=== PATIENT | female | born 1965 | race American Indian/Alaskan Native ===

== ENCOUNTER 2016-09-21 04:09 | Emergency (ER) | payer BC ==
[2016-09-21 05:03] LABS: Urine Drugs of Abuse Note Disclamer
[2016-09-21 05:23] LABS: Bilirubin,Urine NEG (Negative); Blood,Urine NEG (Negative); Ketones,Urine NEG (Negative); Leukocyte Esterase,Urine NEG (Negative); Nitrite,Urine NEG (Negative); Protein,Urine <15 mg/dL mg/dL (Negative); RBC,Urine < 1.0 /HPF (0.0-6.0); Urobilinogen,Urine < 2.0 mg/dL (<2.0); WBC,Urine < 1.0 /HPF (0.0-6.0)
[2016-09-21 05:35] LABS: Eosinophils % (Auto) 1.6 % (0.0-4.3); Hematocrit 43.6 % (30.3-42.9); Hemoglobin 14.4 gm/dl (10.1-14.3); Mean Corpuscular HGB Conc 33 % (30-34); Mean Corpuscular Hemoglobin 31 pg (28-32); Mean Corpuscular Volume 94 fl (79-97); Platelet Count 330 K/mm3 (140-440); Red Blood Count 4.66 M/mm3 (3.65-5.03); Red Cell Distribution Width 13.3 % (13.2-15.2); White Blood Count 7.2 K/mm3 (4.5-11.0)
[2016-09-21 05:53] LABS: Anion Gap 22 mmol/L; BUN/Creatinine Ratio 16.25; Blood Urea Nitrogen 13 mg/dL (7-17); Calcium 9.5 mg/dL (8.4-10.2); Carbon Dioxide 24 mmol/L (22-30); Chloride 104.3 mmol/L (98-107); Glucose 100 mg/dL (65-100); Potassium 5.4 mmol/L (3.6-5.0); Sodium 145 mmol/L (137-145)
[2016-09-21 06:29] LABS: Alanine Aminotransferase 24 units/L (7-56); Albumin 4.4 g/dL (3.9-5); Albumin/Globulin Ratio 1.3 %; Alkaline Phosphatase 72 units/L (35-129); Bilirubin,Total 0.2 mg/dL (0.1-1.2); Total Protein 7.7 g/dL (6.3-8.2)
[2016-09-21 06:33] LABS: Bilirubin,Direct < 0.2 mg/dL (0-0.2)
--- NOTE | 2016-09-21 06:38 | Emergency Department Report ---
History of Present Illness - General Chief Complaint: Overdose Stated Complaint: LAWRENCE EVAL Time Seen by Provider: 09/21/16 06:29 Source: patient, police Mode of arrival: Ambulatory Limitations: No Limitations - History of Present Illness Initial Comments: 51-year-old female presents emergency Department via law enforcement for evaluation. Reportedly the patient took 3 800 mg of ibuprofen and drank several glasses of wine in an attempt to get some sleep. Patient states that her mother several years ago, her nephew was killed over the weekend, and her cat had to be put to sleep yesterday. She states she has not slept in the past 3 days. She states that she felt extremely overwhelmed and tired. She states she only wanted to get some sleep. She states that she was not trying to kill herself. She denies auditory or visual hallucinations. There are no other complaints. -: Gradual, During the night Intent: want to go to sleep How Overdose Was Discovered: family/friend present Context: Intentional Overdose: recent loss Associated Symptoms: depression Treatments Prior to Arrival: none - Related Data Home Medications Medication Instructions Recorded Confirmed Last Taken ALBUTEROL Inhaler [Proair] 2 puff IH QID PRN 09/21/16 09/21/16 Unknown Allergies Allergy/AdvReac Type Severity Reaction Status Date / Time No Known Allergies Allergy Unverified 09/21/16 04:52 ED Review of Systems ROS: Stated complaint: MH EVAL Other details as noted in HPI Comment: All other systems reviewed and negative Constitutional: other (fatigue) Psychiatric: depression. denies: auditory hallucinations, visual hallucinations , homicidal thoughts, suicidal thoughts ED Past Medical Hx - Past Medical History Previous Medical History?: Yes Hx Asthma: Yes - Surgical History Past Surgical History?: No - Family History Family history: no significant - Social History Smoking Status: Never Smoker Substance Use Type: Alcohol - Medications Home Medications: Home Medications Medication Instructions Recorded Confirmed Last Taken Type ALBUTEROL Inhaler [Proair] 2 puff IH QID PRN 09/21/16 09/21/16 Unknown History ED Physical Exam - General Limitations: No Limitations General appearance: alert, in no apparent distress - Head Head exam: Present: atraumatic, normocephalic - Eye Eye exam: Present: normal appearance, PERRL, EOMI - ENT ENT exam: Present: normal exam, normal orophraynx, mucous membranes moist - Neck Neck exam: Present: normal inspection, full ROM. Absent: tenderness - Respiratory Respiratory exam: Present: normal lung sounds bilaterally. Absent: respiratory distress - Cardiovascular Cardiovascular Exam: Present: regular rate, normal rhythm, normal heart sounds - GI/Abdominal GI/Abdominal exam: Present: soft, normal bowel sounds. Absent: distended, tenderness - Extremities Exam Extremities exam: Present: normal inspection, full ROM. Absent: tenderness - Back Exam Back exam: Present: normal inspection, full ROM. Absent: tenderness - Neurological Exam Neurological exam: Present: alert, oriented X3. Absent: motor sensory deficit - Psychiatric Psychiatric exam: Present: normal affect, normal mood. Absent: homicidal ideation, suicidal ideation - Skin Skin exam: Present: warm, dry, intact ED Course Vital Signs 09/21/16 09/21/16 09/21/16 04:36 05:00 05:30 Temperature Pulse Rate 76 87 Respiratory 19 18 Rate Blood Pressure 112/70 114/71 124/84 Blood Pressure [Right] O2 Sat by Pulse 97 98 97 Oximetry 09/21/16 09/21/16 09/21/16 06:00 06:07 11:51 Temperature 98.3 F Pulse Rate 69 110 H Respiratory 13 20 18 Rate Blood Pressure 97/61 Blood Pressure 131/97 [Right] O2 Sat by Pulse 98 Oximetry ED Medical Decision Making - Lab Data Result diagrams: 09/21/16 05:09 09/21/16 05:09 - EKG Data -: EKG Interpreted by Me EKG shows normal: sinus rhythm, axis, intervals, QRS complexes, ST-T waves - EKG Data When compared to previous EKG there are: previous EKG unavailable Interpretation: normal EKG - Medical Decision Making Results reviewed. Patient has been medically cleared. Patient has been evaluated by mental health. Initial impression is that the patient can be discharged home with outpatient follow-up. Confirmation of this plan is currently pending the approval of psychiatrist. - Differential Diagnosis depression, adjustment disorder Critical care attestation.: If time is entered above; I have spent that time in minutes in the direct care of this critically ill patient, excluding procedure time. ED Disposition Clinical Impression: Depression Qualifiers: Depression Type: reactive depression Qualified Code(s): F32.9 - Major depressive disorder, single episode, unspecified Disposition: DISCHARGED TO HOME OR SELFCARE Is pt being admited?: No Condition: Stable Instructions: Depression (ED) Referrals: PRIMARY CARE, [Primary Care Provider] - 3-5 Days Time of Disposition: 15:46
--- NOTE | 2016-09-21 09:12 | Consultation ---
History of Present Illness - Reason for Consult Consult date: 09/21/16 Reason for consult: Mental Health Evalution - Chief Complaint Chief complaint: "I just want some sleep" - History of Present Psychiatric Illness 51-year-old AA female presents to emergency Department via law enforcement for mental evaluation. Patient was admitted for swallowing Ibuprofen 800 mg x 3. She states that she was only trying to get some sleep. The patient lost her nephew to gun violence this Sunday (09/16/2016) in [place]. Also, the anniversary to her mom's was Mar and her cat had to be euthanized 2 days ago. She stated, "I just wanted sleep." When she was notified of her nephews , she could not sleep for 3 days. She drunk wine first to induce sleep, but unsuccessful. She decided to take the Ibuprofen at that time. She got into an argument with her sister about her actions and the police was called. She denies trying to kill herself and currently denies SI/HI's, AVH's or being depressed. She denies being hopeless, helpless, or lack of energy at this time or in the past. She did state that counseling would be a "excellent" option moving forward. Medications and Allergies Allergies Allergy/AdvReac Type Severity Reaction Status Date / Time No Known Allergies Allergy Unverified 09/21/16 04:52 Home Medications Medication Instructions Recorded Confirmed Last Taken Type ALBUTEROL Inhaler [Proair] 2 puff IH QID PRN 09/21/16 09/21/16 Unknown History Past psychiatric history - Past Medical History Past Medical History: other (Asthma) Past Surgical History: No surgical history - past Psychiatric treatment and history psychiatric treatment history: Denies. denies fam hx of psy - Social History Social history: Lives alone (Currently a [facility]) Mental Status Exam - Vital signs Last Vital Signs Temp Pulse 69 09/21/16 06:00 Resp 20 09/21/16 06:07 BP 97/61 09/21/16 06:00 Pulse Ox 98 09/21/16 06:07 - Exam Narrative exam: ROS (-) psychosis, (-) delusional, (-) depressed Results Result Diagrams: 09/21/16 05:09 09/21/16 05:09 Abnormal lab results 09/21/16 09/21/16 09/21/16 Range/Units 05:09 05:09 05:09 Hgb (10.1-14.3) gm/dl Hct (30.3-42.9) % Lymph % (Auto) (13.4-35.0) % Alfalfa % (Auto) (0.0-7.3) % Potassium 5.4 H (3.6-5.0) mmol/L Salicylates < 0.3 L (2.8-20.0) mg/dL Plasma/Serum Alcohol 0.25 H (0-0.07) gm% 09/21/16 Range/Units 05:09 Hgb 14.4 H (10.1-14.3) gm/dl Hct 43.6 H (30.3-42.9) % Lymph % (Auto) 49.3 H (13.4-35.0) % Alfalfa % (Auto) 7.9 H (0.0-7.3) % Potassium (3.6-5.0) mmol/L Salicylates (2.8-20.0) mg/dL Plasma/Serum Alcohol (0-0.07) gm% All other labs normal. Assessment and Plan Assessment and plan: Impression: Patient is calm and cooperative during discussion. She experienced recent of her nephew and grieve the of her mother. Recently her cat was euthanized. She denies SI/HI's or AVH's. Alcohol serum. 0.25. Recommendation/Plan: Patient can be discharged. Patient's sister was at the bedside during discussion and will be active in counseling treatment with the patient. Patient was provided outpatient counseling information for her local area before discharged. Discussed generalized coping skills with family member and patient.
[2016-09-21 13:29] VITALS: BP 131/97
== END 2016-09-21 18:44 | disposition home or self-care (01) ==
LOC: EEVIPCON 04:09 → ED 04:09
DX: F32.9 Major depressive disorder, single episode, unspecified (principal); J45.909 Unspecified asthma, uncomplicated
CPT/HCPCS: 36415; 80048; 80074; 80307; 81001; 81025; 85025; 93005; 93010; 99284; G0480; 80320

== ENCOUNTER 2019-08-05 05:53 | Emergency (ER) | payer BC, OTHER ==
[2019-08-05 06:01] VITALS: BP 175/85
[2019-08-05] MEDS ORDERED: dexAMETHasone 20 MG/5 ML VIAL IM ONE (08:29)
--- NOTE | 2019-08-05 08:37 | Emergency Department Report ---
{null, ED Back Pain/Injury HPI - General Chief Complaint: Extremity Injury, Lower Stated Complaint: RT LEG PAIN W/SWELLING Time Seen by Provider: 08/05/19 08:04 Source: patient Limitations: No Limitations - History of Present Illness Initial Comments: 54-year-old female with no significant past medical history presents to the ER today complaining of right low back pain, and right leg pain. Patient states that she started having pain in her right lower back down into her right leg about 2 months ago. She Patient states that she fell about 5 months ago accidentally while walking down the steps. At the time she only injured her knees but not her back. She states that she saw her primary care doctor, but at the time was having right lower back pain but no pain into her right leg. She states her primary care doctor told her it could be related to her weight and recommended that she lose weight. Patient states that her symptoms has been intermittent, but this morning her symptoms were worse and she could barely stand on the right leg. She states that the pain is worse with weightbearing, ambulation and when she moves. It starts in her right lower back and shoots down into her right leg. She reports numbness for the first time in mainly her right thighs. She denies any tingling, weakness, bowel or bladder incontinence, abdominal pain, UTI symptoms, chest pain or shortness of breath. Patient states that she took Motrin prior to coming in, with not much relief. MD Complaint: back pain -: month(s) (2 mths) Radiation: right leg Severity: moderate Quality: sharp Improves With: immobilization Worsens With: movement Context: unknown Associated Symptoms: numbness Treatments Prior to Arrival: NSAIDS - Related Data Home Medications Medication Instructions Recorded Confirmed Last Taken Albuterol INH(or & Nicu Only) 2 puff IH QID PRN 09/21/16 09/21/16 Unknown [Proair] Previous Rx's Medication Instructions Recorded Last Taken Type Gabapentin 300 mg PO BID #30 cap 08/05/19 Unknown Rx methylPREDNISolone [Medrol 4MG 4 mg PO DAILY #1 tab.ds.pk 08/05/19 Unknown Rx DOSEPAK (21 tabs)] Allergies Allergy/AdvReac Type Severity Reaction Status Date / Time No Known Allergies Allergy Verified 08/05/19 06:02 ED Review of Systems ROS: Stated complaint: RT LEG PAIN W/SWELLING Other details as noted in HPI Constitutional: denies: chills, fever Respiratory: denies: shortness of breath, SOB with exertion, SOB at rest Cardiovascular: denies: chest pain Gastrointestinal: denies: abdominal pain, nausea, vomiting, diarrhea Musculoskeletal: back pain Neurological: numbness. denies: headache, weakness, paresthesias, abnormal gait Psychiatric: denies: anxiety, depression, auditory hallucinations, visual hallucinations, homicidal thoughts, suicidal thoughts ED Past Medical Hx - Past Medical History Previous Medical History?: Yes Hx Asthma: Yes - Surgical History Past Surgical History?: No - Social History Smoking Status: Never Smoker Substance Use Type: Alcohol - Medications Home Medications: Home Medications Medication Instructions Recorded Confirmed Last Taken Type Albuterol INH(or & Nicu Only) 2 puff IH QID PRN 09/21/16 09/21/16 Unknown History [Proair] Gabapentin 300 mg PO BID #30 cap 08/05/19 Unknown Rx methylPREDNISolone [Medrol 4MG 4 mg PO DAILY #1 tab.ds.pk 08/05/19 Unknown Rx DOSEPAK (21 tabs)] ED Physical Exam - General Limitations: No Limitations General appearance: alert, in no apparent distress - Head Head exam: Present: atraumatic, normocephalic, normal inspection - Eye Eye exam: Present: normal appearance, PERRL, EOMI Pupils: Present: normal accommodation - ENT ENT exam: Present: normal exam, normal orophraynx, mucous membranes moist - Respiratory Respiratory exam: Present: normal lung sounds bilaterally - Cardiovascular Cardiovascular Exam: Present: regular rate, normal rhythm, normal heart sounds - GI/Abdominal GI/Abdominal exam: Present: soft. Absent: tenderness - Back Exam Back exam: Present: normal inspection, other (pt with TTP mainly over right buttocks. No vert ttp. No erythema, ecchymosis or deformity noted. No swelling. +SLR right leg at about 90 degrees. Sensation bilateral LE equal and normal. Strength bilateral LE 5/5; no saddle anesthesia) - Neurological Exam Neurological exam: Present: alert, oriented X3, CN II-XII intact, normal gait. Absent: motor sensory deficit - Skin Skin exam: Present: intact ED Course Vital Signs 08/05/19 05:56 Temperature 97.9 F Pulse Rate 69 Respiratory 18 Rate Blood Pressure 175/85 O2 Sat by Pulse 100 Oximetry ED Medical Decision Making - Radiology Data Radiology results: report reviewed Patient: SIDNEY ZELAYA MR#: [id number] : 1965 Acct:[id number] Age/Sex: 54 / F ADM Date: 08/05/19 Loc: ED Attending Dr: Ordering Physician: SHASTA QUINTERO Date of Service: 08/05/19 Procedure(s): XR spine lumbosacral 2-3V Accession Number(s): [id number] cc: SHASTA QUINTERO Fluoro Time In Minutes: LUMBAR SPINE 2 VIEWS INDICATION: sciatica. COMPARISON: None. IMPRESSION: Normal alignment. Moderate discogenic DJD is identified at L5-S1. There is a left lateral bridging osteophyte at L1-2 but no significant disc space narrowing. The remaining disc levels are within normal limits. Mild facet arthropathy is suspected at L1-2, L2-3 and L5-S1. The sacrum and SI joints are unremarkable. No acute osseous or soft tissue abnormality. Signer Name: Chuck Guzman Jr, MD Signed: 08/05/2019 8:53 AM Workstation Name: [id number] Transcribed By: TTR Dictated By: CHUCK GUZMAN JR, MD Electronically Authenticated By: CHUCK GUZMAN JR, MD Signed Date/Time: 08/05/19852 DD/ 1 TD/TT: - Medical Decision Making Patient presents to the ER this morning complaining of right lower back pain down into her right leg. Patient is currently resting comfortably, she is alert, and neurologically intact. She is well-appearing, not in any acute d istress. Patient history, exam, diagnostic testing and current condition does not demonstrate any signs of cauda equina, epidural abscess, epidural hematoma, aortic aneurysm, or aortic dissection or any other significant issues requiring further test, admission or consultation at this time. Reviewed x-ray with patient. Suspect that her symptoms are related to lumbar radiculopathy/sciatica and recommend outpatient MRI with either her primary care doctor or coding specialist. Patient condition is stable and she is appropriate for discharge at this time. Critical care attestation.: If time is entered above; I have spent that time in minutes in the direct care of this critically ill patient, excluding procedure time. ED Disposition Clinical Impression: Lumbar radiculopathy, acute, DJD (degenerative joint disease), lumbosacral Disposition: - TO HOME OR SELFCARE Is pt being admited?: No Does the pt Need Aspirin: No Condition: Stable Instructions: Lumbar Radiculopathy (ED), Degenerative Disc Disease (ED) Additional Instructions: Take medications as prescribed. Recommend follow up with Ortho or PCP for outpatient MRI. Return to ED if anything changes or worsens. Prescriptions: Gabapentin 300 mg PO BID #30 cap methylPREDNISolone [Medrol 4MG DOSEPAK (21 tabs)] 4 mg PO DAILY #1 tab.ds.pk Referrals: KEVIN FRANCOIS MD [Staff Physician] - 3-5 Days PRIMARY CARE, [Primary Care Provider] - 3-5 Days Time of Disposition: 09:09 }
--- NOTE | 2019-08-05 08:58 | XRay Report ---
{null, LUMBAR SPINE 2 VIEWS INDICATION: sciatica. COMPARISON: None. IMPRESSION: Normal alignment. Moderate discogenic DJD is identified at L5-S1. There is a left later al bridging osteophyte at L1-2 but no significant disc space narrowing. The remaining disc levels are within normal limits. Mild facet arthropathy is suspected at L1-2, L2-3 and L5-S1. The sacrum and SI joints are unremarkable. No acute osseous or soft tissue abnormality. Signer Name: Chuck Guzman Jr, MD Signed: 08/05/2019 8:53 AM Workstation Name: [id number] }
== END 2019-08-05 09:28 | disposition home or self-care (01) ==
LOC: ED 05:53
DX: M47.27 Other spondylosis with radiculopathy, lumbosacral region (principal); M79.604 Pain in right leg; J45.909 Unspecified asthma, uncomplicated; Z79.899 Other long term (current) drug therapy
CPT/HCPCS: 72100; 96372; 99283; J1100